=== PATIENT | male | born 1985 | race Caucasian/White ===

== ENCOUNTER 2024-11-25 17:52 | Emergency (ER) | payer OTHER ==
[2024-11-25 18:06] VITALS: RESP 18
[2024-11-25 19:51] LABS: Basophils # (A) 0.05 10*3/uL (0.00-0.10); Basophils % (A) 0.6 %; Eosinophils # (A) 0.05 10*3/uL (0.04-0.35); Eosinophils % (A) 0.6 %; HCT 46.0 % (39.6-50.0); HGB 16.2 g/dL (13.0-17.0); Lymphocytes # (A) 1.55 10*3/uL (0.90-5.00); Lymphocytes % (A) 18.6 %; MCH 30.7 pg (27.0-32.0); MCHC 35.2 g/dL (32.0-37.0); MCV 87.1 fL (80.0-97.0); Monocytes # (A) 0.53 10*3/uL (0.20-1.00); Monocytes % (A) 6.4 %; Neutrophils # (A) 6.12 10*3/uL (1.80-7.70); Neutrophils % (A) 73.6 %; Platelet Count 300 10*3/uL (140-440); RBC 5.28 10*6/uL (4.40-5.60); RDW 12.0 % (11.5-14.5); WBC 8.32 10*3/uL (4.50-10.00)
[2024-11-25 19:55] LABS: Bilirubin,Urine Negative (Negative); Blood,Urine Negative (Negative); Color,Urine Yellow; Glucose,Urine (UA) Negative (Negative); Ketones,Urine Negative (Negative); Leukocyte Esterase,Urine Negative (Negative); Nitrite,Urine Negative (Negative); PH, Urine 5.5 (5.0-8.0); Protein,Urine Negative (Negative); Specific Gravity,Urine 1.032 (1.001-1.035); Urobilinogen,Urine 2.0 mg/dL (<2.0)
[2024-11-25 20:21] LABS: African American GFR (CKD) >90 (>60 ml/min/1.73 sqM); Anion Gap 12 mmol/L; Blood Urea Nitrogen 19 mg/dL (9-20); Calcium 10.0 mg/dL (8.4-10.2); Carbon Dioxide 25 mmol/L (22-30); Chloride 105 mmol/L (98-107); Glucose 104 mg/dL (74-99); Non-African American GFR(CKD) 85 (>60 ml/min/1.73 sqM); Potassium 4.1 mmol/L (3.5-5.1); Sodium 142 mmol/L (137-145)
--- NOTE | 2024-11-25 20:24 | US ---
EXAMINATION TYPE: US renals and bladder DATE OF EXAM: 11/25/2024 COMPARISON: NONE CLINICAL INDICATION: Male, 39 years old with history of urinary retention; TECHNIQUE: Grayscale imaging of the bilateral kidneys and urinary bladder: FINDINGS: EXAM MEASUREMENTS: Right Kidney: 11.2x4.1x4.6 cm Left Kidney: 11.1x5.6x4.4 cm Right Kidney: No hydronephrosis or masses seen . No nephrolithiasis. Left Kidney: Anechoic cystic area: 0.8x0.6x0.6cm . No evidence of nephrolithiasis or solid renal mas s. Bladder: Patient voided prior to examination for urinary bladder was severely under distended and ess entially nondiagnostic for evaluation. IMPRESSION: 1. Unremarkable sonographic appearance of the kidneys. 2. Limited evaluation of the urinary bladder due to underdistention. No sonographic evidence of urin whit retention. [facility], , 11/25/2024 8:21 PM
[2024-11-25 20:31] VITALS: BP 142/71; PULSE 80; TEMP 98.2
--- NOTE | 2024-11-25 20:34 | ED ---
General Adult HPI - General Chief complaint: Urogenital Stated complaint: Genital burning Time Seen by Provider: 11/25/24 18:52 Source: patient, RN notes reviewed, old records reviewed Mode of arrival: ambulatory Limitations: no limitations - History of Present Illness Initial comments: 39-year-old male presenting to the emergency department complaining of urinary frequency. Has been an ongoing issue for weeks to months. Decided to come in and get evaluated today. States he notices it a lot at night with increased frequency. No burning when he pees. States he is uncertain if he is completely emptying his bladder. States this did happen previously following surgery at 1 point however it did self resolved. Has not followed up with a PCP or urologist. Presents today for further evaluation. No history of STDs. Denies testicular pain. Denies any fevers, chills. No other significant acute complaints. Presents for further evaluation. - Related Data Allergies Allergy/AdvReac Type Severity Reaction Status Date / Time No Known Allergies Allergy Verified 11/25/24 18:06 Review of Systems ROS Statement: Those systems with pertinent positive or pertinent negative responses have been documented in the HPI. Review of Systems: CONST: Denies fever EYES: Denies blurry vision ENT: Denies nasal congestion C/V: Denies Chest pain RESP: Denies shortness of breath GI: Denies abdominal pain : Endorses increased urinary frequency SKIN: Denies rash. MSK: Denies joint pain. NEURO: Denies headache ROS Other: All systems not noted in ROS Statement are negative. Past Medical History Past Medical History: No Reported History History of Any Multi-Drug Resistant Organisms: None Reported Past Surgical History: No Surgical Hx Reported Past Psychological History: No Psychological Hx Reported Smoking Status: Never smoker Past Alcohol Use History: None Reported Past Drug Use History: Marijuana General Exam - General Exam Comments Initial Comments: General: Appears in no acute distress. HEAD: Normal with no signs of head trauma. EYES: EOMI ENT: Hearing grossly intact RESPIRATORY: Clear breath sounds bilaterally. No wheezes, rales, or rhonchi. C/V: Regular rate and rhythm. S1 and S2 auscultated, peripheral pulses 2+ and intact throughout ABD: Abd is soft, nontender, nondistended EXT: No obvious deformity SKIN: No rashes or lesions observed on exposed skin. NEURO: Alert and orient x 4 Limitations: no limitations Course Vital Signs 11/25/24 11/25/24 18:04 20:31 Temperature 98.3 F 98.2 F Pulse Rate 90 80 Respiratory 18 18 Rate Blood Pressure 142/71 O2 Sat by Pulse 97 100 Oximetry Medical Decision Making - Medical Decision Making Was pt. sent in by a medical professional or institution ([employer] You, SLOT MACHINE KEY PERSON, urgent care, hospital, or residential...) When possible be specific @ -No Did you speak to anyone other than the patient for history (EMS, parent, family, police, friend...)? What history was obtained from this source @ -No Did you review nursing and triage notes (agree or disagree)? Why? @ -I reviewed and agree with nursing and triage notes Were old charts reviewed (outside hosp., previous admission, EMS record, old EKG, old radiological studies, urgent care reports/EKG's, residential records)? Report findings @ -No old charts were reviewed Differential Diagnosis (chest pain, altered mental status, abdominal pain women, abdominal pain men, vaginal bleeding, weakness, fever, dyspnea, syncope, headache, dizziness, GI bleed, back pain, seizure, CVA, palpatations, mental health, musculoskeletal)? @ -Urinary retention, UTI, BPH. This list is not all-inclusive. EKG interpreted by me (3pts min.). @ -None done X-rays interpreted by me (1pt min.). @ -None done CT interpreted by me (1pt min.). @ -None done U/S interpreted by me (1pt. min.). @ -Ultrasound of bladder and kidneys negative for any obvious acute process. What testing was considered but not performed or refused? (CT, X-rays, U/S, labs)? Why? @ -None What meds were considered but not given or refused? Why? @ -None Did you discuss the management of the patient with other professionals (professionals i.e. [employer] You, SLOT MACHINE KEY PERSON, lab, RT, psych nurse, certified social workers in health care, landfill gas collection operator, teacher, asset protection officer, case work aide)? Give summary @ -No Was smoking cessation discussed for >3mins.? @ -No Was critical care preformed (if so, how long)? @ -No Were there social determinants of health that impacted care today? How? (Homelessness, low income, unemployed, alcoholism, drug addiction, transportation, low edu. Level, literacy, decrease access to med. care, halfway, rehab)? @ -No Was there de-escalation of care discussed even if they declined (Discuss DNR or withdrawal of care, Hospice)? DNR status @ -No What co-morbidities impacted this encounter? (DM, HTN, Smoking, COPD, CAD, Cancer, CVA, ARF, Chemo, Hep., AIDS, mental health diagnosis, sleep apnea, morbid obesity)? @ -None Was patient admitted / discharged? Hospital course, mention meds given and route , prescriptions, significant lab abnormalities, going to OR and other pertinent info. @ -Presents emergency department complaining of increased urinary frequency. Is already on doxycycline from urgent care but presents as he has no outpatient follow-up for urology or PCP. Vitals are within acceptable limits. Will obtain basic labs, urinalysis, bladder scan for postvoid residual, as well as ult rasound of the kidneys and bladder. Patient was in agreement this plan. He was given IV fluids. Ultrasound unremarkable. Laboratory studies are within acceptable limits including normal urinalysis.Postvoid residual was 0. I updated the patient. I recommended follow-up with urology and a PCP and I will provide him with information for both. He can continue to monitor symptoms. Recommended he complete the course of doxycycline provided by the urgent care. He can always return to the ER if any worsening symptoms but likely requires more outpatient follow-up. Patient was in agreement this plan. I instructed the patient to follow up with their PCP in the next 1-3 days. I explained that the patient should return to the emergency department if they experience any worsening symptoms. Strict return precautions were discussed with the patient. The patient expressed understanding of these instructions. I answered all questions that the patient had. The patient was discharged home in good condition with their prescriptions and follow up information. Undiagnosed new problem with uncertain prognosis? @ -No Drug Therapy requiring intensive monitoring for toxicity (Heparin, Nitro, Ins ulin, Cardizem)? @ -No Were any procedures done? @ -No Diagnosis/symptom? @ -Urinary frequency Acute, or Chronic, or Acute on Chronic? @ -Acute Uncomplicated (without systemic symptoms) or Complicated (systemic symptoms)? @ -Uncomplicated Side effects of treatment? @ -No Exacerbation, Progression, or Severe Exacerbation? @ -No Poses a threat to life or bodily function? How? (Chest pain, [place], [place], pneumonia, PE, COPD, DKA, ARF, appy, cholecystitis, CVA, Diverticulitis, Homicidal, Suicidal, threat to staff... and all critical care pts) @ -Unlikely at this time - Lab Data Result diagrams: 11/25/24 19:39 11/25/24 19:39 Lab Results 11/25/24 11/25/24 11/25/24 Range/Units 19:39 19:39 19:43 WBC 8.32 (4.50-10.00) 10*3/uL RBC 5.28 (4.40-5.60) 10*6/uL Hgb 16.2 (13.0-17.0) g/dL Hct 46.0 (39.6-50.0) % MCV 87.1 (80.0-97.0) fL MCH 30.7 (27.0-32.0) pg MCHC 35.2 (32.0-37.0) g/dL Plt Count 300 (140-440) 10*3/uL MPV 9.8 (9.5-12.2) fL Immature Gran % (Auto) 0.2 % Neutrophils % 73.6 % Lymphocytes % 18.6 % Monocytes % 6.4 % Eosinophils % 0.6 % Basophils % 0.6 % Immature Gran # 0.02 (0.00-0.04) 10*3/uL Neutrophils # 6.12 (1.80-7.70) 10*3/uL Lymphocytes # 1.55 (0.90-5.00) 10*3/uL Monocytes # 0.53 (0.20-1.00) 10*3/uL Eosinophils # 0.05 (0.04-0.35) 10*3/uL Basophils # 0.05 (0.00-0.10) 10*3/uL Sodium 142 (137-145) mmol/L Potassium 4.1 (3.5-5.1) mmol/L Chloride 105 (98-107) mmol/L Carbon Dioxide 25 (22-30) mmol/L Anion Gap 12 mmol/L BUN 19 (9-20) mg/dL Creatinine 1.11 (0.66-1.25) mg/dL Est GFR (CKD-EPI)AfAm >90 (>60 ml/min/1.73 sqM) Est GFR (CKD-EPI)NonAf 85 (>60 ml/min/1.73 sqM) Glucose 104 H (74-99) mg/dL Calcium 10.0 (8.4-10.2) mg/dL Urine Color Yellow Urine Appearance Clear (Clear) Urine pH 5.5 (5.0-8.0) Ur Specific Anna 1.032 (1.001-1.035) Urine Protein Negative (Negative) Urine Glucose (UA) Negative (Negative) Urine Ketones Negative (Negative) Urine Blood Negative (Negative) Urine Nitrite Negative (Negative) Urine Bilirubin Negative (Negative) Urine Urobilinogen 2.0 (<2.0) mg/dL Ur Leukocyte Esterase Negative (Negative) Disposition Clinical Impression: Urinary retention Disposition: HOME SELF-CARE Condition: Good Instructions (If sedation given, give patient instructions): Urinary Urgency and Frequency (DC) Is patient prescribed a controlled substance at d/c from ED?: No Referrals: None,Stated [Primary Care Provider] - 1-2 days Obey Reeder MD [STAFF PHYSICIAN] - 1-2 days Forms: PH Area PCPs Time of Disposition: 20:34
== END 2024-11-25 22:15 | disposition home or self-care (01) ==
LOC: EC 17:52
DX: R33.9 Retention of urine, unspecified (principal)
CPT/HCPCS: 36415; 51798; 76770; 80048; 81003; 85025; 99284